=== PATIENT | female | born 1970 | race Caucasian/White ===

== ENCOUNTER 2017-07-02 09:31 | Emergency (ER) | payer SELFPAY ==
[2017-07-02] MEDS ORDERED: IPRATROPIUM/ALBUTEROL 3 ML NEB INH STA (09:56)
--- NOTE | 2017-07-02 09:59 | ED Physician Documentation ---
PD HPI URI - Stated complaint Stated Complaint: CHEST CONGESTION,COUGH - Chief complaint Chief Complaint: Fever - History obtained from History obtained from: Patient - History of Present Illness Timing - onset: How many days ago (5) Timing duration: Days (5) Timing details: Still present Associated symptoms: Fever, Dry cough, Dyspnea Contributing factors: COPD / asthma - Additional information Additional information: The patient is a 47-year-old female with history of asthma, who presents with cough and congestion for the past 5 days. She is concerned about "the flu," or possible pneumonia. She has had fevers, myalgias, sore throat, and nausea, without vomiting or abdominal pain. Her cough is minimally productive of sputum. She reports associated dyspnea. She has no history of cigarette smoking. Review of Systems Constitutional: reports: Fever, Myalgias, Fatigue Eyes: denies: Irritation Ears: denies: Ear pain Nose: reports: Congestion Throat: reports: Sore throat (mild) Cardiac: denies: Chest pain / pressure Respiratory: reports: Dyspnea, Cough, Wheezing GI: reports: Nausea. denies: Abdominal Pain, Vomiting, Diarrhea : denies: Dysuria Skin: denies: Rash Musculoskeletal: denies: Extremity swelling Neurologic: reports: Headache (Previously, but not currently.) PD PAST MEDICAL HISTORY - Past Medical History Cardiovascular: None Respiratory: Asthma Endocrine/Autoimmune: None - Present Medications Home Medications: Ambulatory Orders Medication Instructions Recorded Confirmed Acyclovir 07/02/17 Gabapentin 07/02/17 Loratadine [Claritin] 07/02/17 Omeprazole [PriLOSEC] 07/02/17 - Allergies Allergies/Adverse Reactions: Allergies Allergy/AdvReac Type Severity Reaction Status Date / Time cefdinir [From Omnicef] Allergy Rash Verified 07/02/17 10:08 latex Allergy Unknown Verified 07/02/17 10:08 Penicillins Allergy Unknown Verified 07/02/17 10:08 prednisone Allergy Anaphylaxis Verified 07/02/17 10:08 - Social History Does the pt smoke?: No PD ED PE NORMAL - Vitals Vital signs reviewed: Yes (normal) - General General: Alert and oriented X 3, Well developed/nourished - HEENT HEENT: Atraumatic, Ears normal, Moist mucous membranes, Pharynx benign - Neck Neck: Supple, no meningeal sign, No adenopathy, No JVD - Cardiac Cardiac: RRR, No murmur - Respiratory Respiratory: Other (Diffuse expiratory wheezing, without rales or rhonchi.) - Abdomen Abdomen: Soft, Non tender, Other (Rotund abdomen.) - Derm Derm: No rash - Extremities Extremities: No edema, No calf tenderness / cord - Neuro Neuro: Alert and oriented X 3, No motor deficit, Normal speech Results - Vitals Vitals: Oxygen O2 Source Room air - Labs Labs: Laboratory Tests 07/02/17 10:00 Influenza A (Rapid) Negative Influenza B (Rapid) Negative Influenza Types A,B Ag - - Rads (name of study) 2-view CXR Radiology: Prelim report reviewed, EMP read contemporaneously, See rad report ( Negative for pneumonia or acute cardiopulmonary process. Mild anterior compression fracture in the T8 and T9 vertebral bodies.) PD MEDICAL DECISION MAKING - ED course Complexity details: reviewed results, re-evaluated patient, considered differential, d/w patient ED course: The patient's presentation is most consistent with acute viral bronchitis with wheezing. Her presentation does not suggest pneumonia, and her chest x-ray reveals no acute infiltrate or effusion. Influenza swab is negative. Treatment in the emergency department included administration of DuoNeb nebulizer which improved her air movement. She felt subjectively improved. Steroids were not administered, as the patient reports history of allergy to prednisone. I discussed with her the expected course of illness, advised that antibiotics are not clinically indicated, encouraged outpatient follow-up, as well as discussed potentially worrisome signs or symptoms that should prompt reevaluation in the emergency department. Departure - Departure Disposition: 01 Home, Self Care Clinical Impression: Acute bronchitis, viral Condition: Stable Instructions: ED Bronchitis Asthmatic Follow-Up: Crystal Forbes PA-C [Provider Admit Priv/Credential] - Comments: Continue using your inhaler as previously prescribed. You can use Tylenol or ibuprofen as needed for fever or discomfort. Follow up with your primary physician within 1-2 weeks. Call to schedule appointment. Return to the emergency department if you develop increasing difficulty breathing, or otherwise worsening symptoms. Discharge Date/Time: 07/02/17 11:08
--- NOTE | 2017-07-02 10:31 | XRAY Report ---
EXAM: CHEST RADIOGRAPHY EXAM DATE: 07/02/2017 10:07 AM. CLINICAL HISTORY: Cough and congestion, with wheezing. COMPARISON: None. TECHNIQUE: 2 views. FINDINGS: Lungs/Pleura: No focal opacities evident. No pleural effusion. No pneumothorax. Normal volumes. Mediastinum: Heart and mediastinal contours are unremarkable. Other: There is mild anterior compression fracture in the T8 and T9. IMPRESSION: 1. Negative for pneumonia or acute cardiopulmonary process. 2. Mild anterior compression fracture in the T8 and T9 [facility] Referring Provider Line: [phone] SITE ID: [id number]
--- NOTE | 2017-07-02 10:31 | XRAY Preliminary Report ---
Exam: XR CHEST 2 VIEW X-RAY IMPRESSION: 1. Negative for pneumonia or acute cardiopulmonary process. 2. Mild anterior compression fracture in the T8 and T9 [facility] SITE ID: [id number]
[2017-07-02 11:10] VITALS: BP 127/92
== END 2017-07-02 11:08 | disposition home or self-care (01) ==
LOC: ED 09:31
DX: J20.8 Acute bronchitis due to other specified organisms (principal); R06.2 Wheezing
CPT/HCPCS: 71046; 87275; 87276; 94640; 94664; 99283; 99284; J7620

== ENCOUNTER 2017-11-25 07:53 | Emergency (ER) | payer SELFPAY ==
--- NOTE | 2017-11-25 08:49 | ED Physician Documentation ---
PD HPI CHEST PAIN - Stated complaint Stated Complaint: CHEST PX - Chief complaint Chief Complaint: Cardiac - History obtained from History obtained from: Patient - History of Present Illness Timing - onset: Today Timing - onset during: Rest Timing - duration: Minutes Timing - details: Abrupt onset, Still present Quality: Pressure Location: Substernal, Left chest Radiation: Left upper extremity. No: Jaw, Neck, Back, Abdominal, Right upper extremity Improved by: Rest Worsened by: Palpation Associated symptoms: No: Shortness of air, Diaphoresis, Nausea, Vomiting, Feeling faint / dizzy, General Weakness, Palpitations, Cough Similar symptoms before: Has not had sx before Recently seen: Clinic - Additional information Additional information: 47-year-old female who is been having some issues with nasal congestion and burning in her nose and pain in her left ear has developed some pain in her chest today. She states that she developed a cramp in her left calf and when this happened her rubbed her legs and when he was rubbing her left leg she had sudden onset of this pain in her left chest. She describes it as a squeezing-like sensation and she does have some tenderness to the chest wall. She has not had this specific pain previously she did have the pain creep up her into her arm that is now resolved she has a persistent pinch in her chest wall. Review of Systems Constitutional: denies: Fever, Chills, Myalgias Eyes: denies: Decreased vision Ears: reports: Ear pain Nose: reports: Rhinorrhea / runny nose, Congestion Throat: denies: Sore throat Cardiac: reports: Chest pain / pressure. 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 - Present Medications Home Medications: Ambulatory Orders Medication Instructions Recorded Confirmed Acyclovir 07/02/17 Gabapentin 07/02/17 Loratadine [Claritin] 07/02/17 Omeprazole [PriLOSEC] 07/02/17 Albuterol Sulf [Ventolin Hfa 1 - 2 puffs INH Q4HR PRN #1 inhaler 11/25/17 Inhaler] Sulfamethoxazole/Trimethoprim 1 each PO BID #14 tablet 11/25/17 [Sulfamethoxazole-Tmp Ds Tablet] - Allergies Allergies/Adverse Reactions: Allergies Allergy/AdvReac Type Severity Reaction Status Date / Time cefdinir [From Omnicef] Allergy Rash Verified 07/02/17 10:08 latex Allergy Unknown Verified 07/02/17 10:08 Penicillins Allergy Unknown Verified 07/02/17 10:08 prednisone Allergy Anaphylaxis Verified 07/02/17 10:08 - Social History Does the pt smoke?: No Smoking Status: Never smoker Does the pt drink ETOH?: No Does the pt have substance abuse?: No - Immunizations Immunizations are current?: Yes PD ED PE NORMAL - Vitals Vital signs reviewed: Yes (hypertensive ) - General General: Alert and oriented X 3, No acute distress, Well developed/nourished - HEENT HEENT: Atraumatic, PERRL, EOMI, Moist mucous membranes, Pharynx benign, Other ( There is minimal inflamation in the left ear. ) - Neck Neck: Supple, no meningeal sign, No bony TTP - Cardiac Cardiac: RRR, No murmur - Respiratory Respiratory: No respiratory distress, Clear bilaterally - Abdomen Abdomen: Soft, Non tender - Back Back: No CVA TTP, No spinal TTP - Derm Derm: Normal color, Warm and dry, No rash - Extremities Extremities: No deformity, No edema - Neuro Neuro: Alert and oriented X 3, cigar head stringer 2-12 intact, No motor deficit, No sensory deficit, Normal speech Eye Opening: Spontaneous Motor: Obeys Commands Verbal: Oriented GCS Score: 15 - Psych Psych: Normal mood, Normal affect Results - Vitals Vitals: Vital Signs - 24 hr 11/25/17 11/25/17 11/25/17 08:00 08:59 12:13 Temperature 36.1 C L Heart Rate 85 84 77 Respiratory 18 17 10 L Rate Blood Pressure 126/93 H 129/107 H 134/89 H O2 Saturation 96 97 98 11/25/17 13:25 Temperature Heart Rate 86 Respiratory 12 Rate Blood Pressure O2 Saturation Oxygen O2 Source Room air - EKG (time done) 0806 Rate: Rate (enter#) (84) Rhythm: NSR Compare to prior EKG: Old EKG unavailable Computer interpretation: Agree with computer - Labs Labs: Laboratory Tests 11/25/17 11/25/17 11/25/17 09:56 09:56 10:00 WBC 6.2 RBC 4.96 Hgb 14.1 Hct 41.7 MCV 84.1 MCH 28.5 MCHC 33.9 RDW 13.3 Plt Count 257 MPV 8.3 Neut # (Auto) 3.4 Lymph # (Auto) 1.9 [place] # (Auto) 0.5 Eos # (Auto) 0.3 Baso # (Auto) 0.0 Absolute Nucleated RBC 0.01 Nucleated RBC % 0.1 Sodium Potassium Chloride Carbon Dioxide Anion Gap BUN Creatinine Estimated GFR (MDRD) Glucose Calcium Total Bilirubin AST ALT Alkaline Phosphatase Troponin I Total Protein Albumin Globulin Albumin/Globulin Ratio Lipase Urine Color YELLOW Urine Clarity CLEAR Urine pH 6.0 Ur Specific [place] <=1.005 <=1.005 Urine Protein NEGATIVE Urine Glucose (UA) NEGATIVE Urine Ketones NEGATIVE Urine Occult Blood NEGATIVE Urine Nitrite NEGATIVE Urine Bilirubin NEGATIVE Urine Urobilinogen 0.2 (NORMAL) Ur Leukocyte Esterase NEGATIVE Ur Microscopic Review NOT INDICATED Urine Culture Comments NOT INDICATED Urine HCG, Qual NEGATIVE 11/25/17 11/25/17 10:00 10:00 WBC RBC Hgb Hct MCV MCH MCHC RDW Plt Count MPV Neut # (Auto) Lymph # (Auto) [place] # (Auto) Eos # (Auto) Baso # (Auto) Absolute Nucleated RBC Nucleated RBC % Sodium 139 Potassium 4.0 Chloride 102 Carbon Dioxide 28 Anion Gap 9.0 BUN 12 Creatinine 0.7 Estimated GFR (MDRD) 90 Glucose 110 H Calcium 9.0 Total Bilirubin 0.7 AST 32 ALT 57 Alkaline Phosphatase 85 Troponin I < 0.04 Total Protein 7.6 Albumin 3.8 Globulin 3.8 Albumin/Globulin Ratio 1.0 Lipase 26 Urine Color Urine Clarity Urine pH Ur Specific [place] Urine Protein Urine Glucose (UA) Urine Ketones Urine Occult Blood Urine Nitrite Urine Bilirubin Urine Urobilinogen Ur Leukocyte Esterase Ur Microscopic Review Urine Culture Comments Urine HCG, Qual - Rads (name of study) CTA chest Radiology: Prelim report reviewed (Impression:. No pulmonary emboli. 2 no focal consolidation, pleural effusion or lymphadenopathy. 3 hepatic steatosis. 4 small hiatal hernia.), EMP read indepedently, See rad report PD MEDICAL DECISION MAKING - ED course Complexity details: reviewed old records, reviewed results, re-evaluated patient , considered differential, d/w patient ED course: 47-year-old female with allergic sinus symptoms and chest wall pain I suspect has subclinical asthma and chest wall strain.She is administered Toradol with some improvement in the pain. I did offer the patient dexamethasone and she refused stating that she has had some reaction to prednisone that was unpleasant. She states that this usually had caused her to have an increase in her respiratory difficulty. She does have some inflammation in the nares and some inflammation in the left ear as well. She states that she is able to take Septra and this is the antibiotic that has worked best for her with sinus issues. She uses a Qvar inhaler and does not use albuterol on any regular basis. She has not been using albuterol recently. Here in the emergency department she is given a DuoNeb treatment. She does not have much immediate improvement with the exception of ease of breathing. After discussing the situation with the patient further does appear that she had significant nasal congestion and obstruction to breathing through her nasal passages for several days. This is somewhat better today. When I had her plug her nose and try to breathe through the nose she had the pain in her chest. I suspect this confirms the chest wall strain. We will provide her with a prescription for a new albuterol inhaler and she prefers to use Bactrim for sinus infection and I suspect she has some mild infection as well as the inflammatory irritation. I am reluctant to use a steroid with this patient because she has had prior worsening with prednisone requiring repeat visits to the emergency department. - Sepsis Event Vital Signs: Vital Signs - 24 hr 11/25/17 11/25/17 11/25/17 08:00 08:59 12:13 Temperature 36.1 C L Heart Rate 85 84 77 Respiratory 18 17 10 L Rate Blood Pressure 126/93 H 129/107 H 134/89 H O2 Saturation 96 97 98 11/25/17 13:25 Temperature Heart Rate 86 Respiratory 12 Rate Blood Pressure O2 Saturation Oxygen O2 Source Room air Departure - Departure Disposition: 01 Home, Self Care Clinical Impression: Strain of chest wall Qualifiers: Encounter type: initial encounter Qualified Code(s): S29.011A - Strain of muscle and tendon of front wall of thorax, initial encounter Sinusitis Qualifiers: Sinusitis location: unspecified location Chronicity: acute Recurrence: not specified as recurrent Qualified Code(s): J01.90 - Acute sinusitis, unspecified Condition: Stable Instructions: ED Sinusitis Abx Tx, ED Chest Pain Costochondritis Follow-Up: Your, doctor [Other] Prescriptions: Albuterol Sulf [Ventolin Hfa Inhaler] 1 - 2 puffs INH Q4HR PRN #1 inhaler PRN Reason: Shortness Of Air/Wheezing Sulfamethoxazole/Trimethoprim [Sulfamethoxazole-Tmp Ds Tablet] 1 each PO BID # 14 tablet
[2017-11-25] MEDS ORDERED: IOPAMIDOL-300 100 ML VIAL ONE (09:34)
[2017-11-25 10:11] LABS: BASOPHILS % (AUTO) 0.8 %; EOSINOPHILS # (AUTO) 0.3 10^3/uL (0.0-0.7); EOSINOPHILS % (AUTO) 5.4 %; HGB - HEMOGLOBIN 14.1 g/dL (12.0-16.0); LYMPHOCYTES # (AUTO) 1.9 10^3/uL (1.5-3.5); MEAN CORPUSCULAR HEMOGLOBIN 28.5 pg (27.0-31.0); MEAN CORPUSCULAR HGB CONC 33.9 g/dL (32.0-36.0); MEAN CORPUSCULAR VOLUME 84.1 fL (81.0-99.0); MEAN PLATELET VOLUME 8.3 fL (7.9-10.8); MONOCYTES # (AUTO) 0.5 10^3/uL (0.0-1.0); MONOCYTES % (AUTO) 8.6 %; NEUTROPHILS # (AUTO) 3.4 10^3/uL (1.5-6.6); NEUTROPHILS % (AUTO) 54.2 %; PLT - PLATELET COUNT 257 10^3/uL (130-450); RED BLOOD COUNT 4.96 10^6/uL (4.20-5.40); RED CELL DISTRIBUTION WIDTH 13.3 % (12.0-15.0); WHITE BLOOD COUNT 6.2 x10^3/uL (4.8-10.8)
[2017-11-25 10:14] LABS: BILIRUBIN,URINE NEGATIVE (NEGATIVE); CLARITY,URINE CLEAR (CLEAR); GLUCOSE, URINE (UA) NEGATIVE (NEGATIVE); KETONES,URINE (UA) NEGATIVE (NEGATIVE); LEUKOCYTE ESTERASE, URINE NEGATIVE (NEGATIVE); NITRITE,URINE NEGATIVE (NEGATIVE); OCCULT BLOOD,URINE NEGATIVE (NEGATIVE); PROTEIN,URINE NEGATIVE (NEGATIVE); UROBILINOGEN,URINE 0.2 (NORMAL) E.U./dL (NORMAL)
[2017-11-25 10:15] LABS: HCG UR QUAL NEGATIVE
[2017-11-25 10:28] LABS: ALBUMIN 3.8 g/dL (3.2-5.5); BILIRUBIN,TOTAL 0.7 mg/dL (0.2-1.0); CREATININE 0.7 mg/dL (0.4-1.0); TOTAL PROTEIN 7.6 g/dL (6.7-8.2)
--- NOTE | 2017-11-25 11:36 | CT Report ---
Procedure Date: 11/25/2017 Accession Number: [id number] / [id number] Procedure: CT - Chest Angio (PE) CPT Code: FULL RESULT: EXAM: CT ANGIOGRAM CHEST EXAM DATE: 11/25/2017 11:09 AM. CLINICAL HISTORY: Chest pain dyspnea. COMPARISON: None. TECHNIQUE: Routine helical imaging was performed through the chest in the pulmonary arterial phase. IV Contrast: ISOVUE 300 80mL. Reconstructions: Coronal 3-D MIP reconstructions.Sagittal and coronal. In accordance with CT protocol optimization, one or more of the following dose reduction techniques were utilized for this exam: automated exposure control, adjustment of mA and/or KV based on patient size, or use of iterative reconstructive technique. FINDINGS: Pulmonary Arteries: Diagnostic quality: Adequate through the segmental arteries. No evidence for acute or chronic pulmonary emboli. RV/LV is within normal limits. There is no interventricular septal bowing. There is no reflux of contrast material in the IVC. Lungs/Pleura: No consolidation, nodules, or edema. No effusions or pneumothorax. Mediastinum: Normal. No cardiac enlargement or adenopathy. Thoracic Aorta: Unremarkable. Upper Abdomen: The liver is low in attenuation consistent with hepatic steatosis. Other: Small hiatal hernia. IMPRESSION: 1. No pulmonary emboli. 2. No focal consolidation, pleural effusion or lymphadenopathy. 3. Hepatic steatosis. 4. Small hiatal hernia. [facility]
[2017-11-25] MEDS ORDERED: KETOROLAC 60 MG/2 ML VIAL IVP STA (11:53)
[2017-11-25] MEDS ORDERED: IOPAMIDOL-300 100 ML VIAL IVP ONE (12:14)
[2017-11-25] MEDS ORDERED: IPRATROPIUM/ALBUTEROL 3 ML NEB INH STA (13:07)
[2017-11-25 14:25] VITALS: BP 128/74
== END 2017-11-25 14:22 | disposition home or self-care (01) ==
LOC: ED 07:53
DX: S29.011A Strain of muscle and tendon of front wall of thorax, initial encounter (principal); J01.90 Acute sinusitis, unspecified; K44.9 Diaphragmatic hernia without obstruction or gangrene
CPT/HCPCS: 36415; 71275; 80053; 81003; 81025; 83690; 84484; 85025; 93005; 94640; 96374; 96375; 99284; Q9967; 81001; 87086

== ENCOUNTER 2020-06-24 17:43 | Emergency (ER) | payer OTHER ==
[2020-06-24 17:53] VITALS: BP 146/105
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
== END 2020-06-24 18:39 | disposition home or self-care (01) ==
LOC: ED 17:43
DX: T60.91XA Toxic effect of unspecified pesticide, accidental (unintentional), initial encounter (principal); R07.0 Pain in throat; R07.9 Chest pain, unspecified; R51.9 Headache, unspecified; Y92.009 Unspecified place in unspecified non-institutional (private) residence as the place of occurrence of the external cause
CPT/HCPCS: 99281

== ENCOUNTER 2021-05-27 09:16 | Emergency (ER) | payer MEDICAID, OTHER ==
[2021-05-27 09:57] LABS: BASOPHILS % (AUTO) 0.8 %; EOSINOPHILS # (AUTO) 0.6 10^3/uL (0.0-0.7); EOSINOPHILS % (AUTO) 11.9 %; HCT - HEMATOCRIT 40.2 % (37.0-47.0); HGB - HEMOGLOBIN 13.3 g/dL (12.0-16.0); LYMPHOCYTES # (AUTO) 1.9 10^3/uL (1.5-3.5); LYMPHOCYTES % (AUTO) 37.3 %; MEAN CORPUSCULAR HEMOGLOBIN 27.7 pg (27.0-31.0); MEAN CORPUSCULAR HGB CONC 33.1 g/dL (32.0-36.0); MEAN CORPUSCULAR VOLUME 83.8 fL (81.0-99.0); MEAN PLATELET VOLUME 10.5 fL (7.9-10.8); MONOCYTES # (AUTO) 0.4 10^3/uL (0.0-1.0); MONOCYTES % (AUTO) 8.7 %; NEUTROPHILS # (AUTO) 2.1 10^3/uL (1.5-6.6); NEUTROPHILS % (AUTO) 41.1 %; PLT - PLATELET COUNT 247 10^3/uL (130-450); RED CELL DISTRIBUTION WIDTH 13.7 % (12.0-15.0)
--- NOTE | 2021-05-27 10:02 | XRAY Report ---
PROCEDURE: Chest 1 View X-Ray INDICATIONS: Chest pain TECHNIQUE: One view of the chest was acquired. COMPARISON: Chest radiographs 07/02/2017. CTA chest 11/25/2017. FINDINGS: Surgical changes and devices: None. Lungs and pleura: No pleural effusions or pneumothorax. Lungs are clear. Mediastinum: Mediastinal contours appear normal. Heart size is normal. Bones and chest wall: No suspicious bony lesions. Overlying soft tissues appear unremarkable. IMPRESSION: No acute cardiopulmonary abnormality. Reviewed by: Matt Robb MD on 05/27/2021 10:01 AM [facility] Approved by: Matt Robb MD on 05/27/2021 10:01 AM [facility] Station ID: [id number]
[2021-05-27 10:12] LABS: ALBUMIN 3.9 g/dL (3.2-5.5); ALBUMIN/GLOBULIN RATIO 1.3 (1.0-2.2); BILIRUBIN,TOTAL 0.6 mg/dL (0.2-1.0); CALCIUM 8.9 mg/dL (8.5-10.3); CREATININE 0.7 mg/dL (0.4-1.0); POTASSIUM 3.8 mmol/L (3.5-5.0)
--- NOTE | 2021-05-27 11:00 | ED Physician Documentation ---
History of Present Illness - Stated complaint Stated Complaint: LT ARM NUMB/SOA - Chief complaint Chief Complaint: Cardiac - History obtained from History obtained from: Patient - History of Present Illness Timing: Last night - Additonal information Additional information: 50-year-old female reports some numbness to her left hand that is periodic in nature and seems to be related to positioning. She feels that if she lays down she has more of the symptoms and if she is sitting up they do not seem to be bothering her at all. She does not have any exertional component to the numbness she is not having shortness of breath and she has not been otherwise ill. Review of Systems Constitutional: denies: Fever Eyes: denies: Decreased vision Ears: denies: Ear pain Nose: denies: Congestion Throat: denies: Sore throat Cardiac: denies: Chest pain / pressure, Palpitations Respiratory: denies: Dyspnea, Cough GI: denies: Abdominal Pain, Nausea, Vomiting : denies: Dysuria, Frequency Skin: denies: Rash Musculoskeletal: reports: Extremity pain. denies: Neck pain, Back pain Neurologic: reports: Numbness. 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 - Present Medications Home Medications: Ambulatory Orders Medication Instructions Recorded Confirmed Acyclovir 07/02/17 Gabapentin PRN 07/02/17 Albuterol Sulf [Ventolin Hfa 1 - 2 puffs INH Q4HR PRN #1 inhaler 11/25/17 Inhaler] Beclomethasone 40 Mcg [Qvar 40] 1 puffs INH BID 06/24/20 06/24/20 - Allergies Allergies/Adverse Reactions: Allergies Allergy/AdvReac Type Severity Reaction Status Date / Time cefdinir [From Omnicef] Allergy Rash Verified 05/27/21 09:27 latex Allergy Unknown Verified 05/27/21 09:27 Penicillins Allergy Unknown Verified 05/27/21 09:27 prednisone Allergy Anaphylaxis Verified 05/27/21 09:27 - Social History Does the pt smoke?: No Smoking Status: Never smoker Does the pt drink ETOH?: No Does the pt have substance abuse?: No - Immunizations Immunizations are current?: Yes - POLST Patient has POLST: No PD ED PE NORMAL - Vitals Vital signs reviewed: Yes (hypertensive ) - General General: Alert and oriented X 3, No acute distress, Well developed/nourished - HEENT HEENT: Atraumatic, PERRL, EOMI - Neck Neck: Supple, no meningeal sign, No bony TTP - Cardiac Cardiac: RRR, No murmur - Respiratory Respiratory: No respiratory distress, Clear bilaterally - Abdomen Abdomen: Normal bowel sounds, Soft, Non tender, Non distended, No organomegaly - Back Back: No CVA TTP, No spinal TTP - Derm Derm: Normal color, Warm and dry, No rash - Extremities Extremities: No deformity, No edema - Neuro Neuro: Alert and oriented X 3, weight reduction specialist 2-12 intact, No motor deficit, No sensory deficit, Normal speech Eye Opening: Spontaneous Motor: Obeys Commands Verbal: Oriented GCS Score: 15 - Psych Psych: Normal mood, Normal affect Results - Vitals Vitals: Vital Signs - 24 hr 05/27/21 05/27/21 05/27/21 09:24 09:59 11:15 Temperature 36.0 C L 36.5 C Heart Rate 85 77 76 Respiratory 16 16 16 Rate Blood Pressure 148/95 H 141/91 H 138/88 H O2 Saturation 98 96 96 Oxygen O2 Source Room air - EKG (time done) 0936 Rate: Rate (enter#) (81) Rhythm: NSR Ischemia: Normal ST segments Computer interpretation: Agree with computer - Labs Labs: Laboratory Tests 05/27/21 05/27/21 05/27/21 09:44 09:44 09:45 WBC 5.0 RBC 4.80 Hgb 13.3 Hct 40.2 MCV 83.8 MCH 27.7 MCHC 33.1 RDW 13.7 Plt Count 247 MPV 10.5 Neut # (Auto) 2.1 Lymph # (Auto) 1.9 [place] # (Auto) 0.4 Eos # (Auto) 0.6 Baso # (Auto) 0.0 Absolute Nucleated RBC 0.00 Nucleated RBC % 0.0 Sodium 135 Potassium 3.8 Chloride 101 Carbon Dioxide 25 Anion Gap 9.0 BUN 17 Creatinine 0.7 Estimated GFR (MDRD) 89 Glucose 122 H Calcium 8.9 Total Bilirubin 0.6 AST 20 ALT 28 Alkaline Phosphatase 79 Troponin I High Sens < 2.3 L Total Protein 7.0 Albumin 3.9 Globulin 3.1 Albumin/Globulin Ratio 1.3 Lipase 70 H - Rads (name of study) chest Radiology: Prelim report reviewed (Impression: No acute cardiopulmonary abnormality.), EMP read indepedently, See rad report PD MEDICAL DECISION MAKING - ED course Complexity details: reviewed old records, reviewed results, re-evaluated patient, considered differential, d/w patient ED course: 50-year-old female with intermittent numbness to the left hand that appears to be related to positioning likely has a cervical radiculopathy. I explained this to the patient the nature of the cervical radiculopathy and treatments available. I did discuss with her dose of dexamethasone and she declined as she has had prior poor reaction to prednisone. I did discuss with the patient that if she continues to have these symptoms and follows up with her primary, it would be a reasonable thing to take a dose of the dexamethasone as a benefit shown from this would likely indicate further benefit from addressing the cervic al spine. Departure - Departure Disposition: 01 Home, Self Care Clinical Impression: Cervical radiculopathy Condition: Stable Instructions: ED Cervical Radiculopathy Follow-Up: Koko Munguia MD [Primary Care Provider] - Comments: Yanni Jacinto, today it looks like the numbness you are having in your left hand is likely due to cervical radiculopathy or a pinched nerve in your neck. If you continue to have some difficulty with pain in your neck and shoulder or down your arm when you are laying flat follow-up with Dr. Munguia to consider a dose of dexamethasone. Forms: Activity restrictions Discharge Date/Time: 05/27/21 11:15
[2021-05-27 11:16] VITALS: BP 138/88
== END 2021-05-27 11:15 | disposition home or self-care (01) ==
LOC: ED 09:16
DX: M54.12 Radiculopathy, cervical region (principal)
CPT/HCPCS: 36415; 80053; 83690; 84484; 85025; 93005; 99283; 99284

== ENCOUNTER 2021-08-22 10:54 | Outpatient (CLI) | payer MEDICAID | END 2021-08-22 10:55 | disposition home or self-care (01) | LOC: NS 10:54 | PROVIDERS: ATTEND Nurse Practitioner Family | DX: Z71.3 Dietary counseling and surveillance (principal); E11.9 Type 2 diabetes mellitus without complications; E78.2 Mixed hyperlipidemia; E66.01 Morbid (severe) obesity due to excess calories; Z68.42 Body mass index [BMI] 45.0-49.9, adult | CPT/HCPCS: 97802 ==

== ENCOUNTER 2022-02-13 08:00 | Outpatient (CLI) | payer MEDICAID ==
[2022-02-13 18:24] LABS: BASOPHILS % (AUTO) 0.9 %; EOSINOPHILS # (AUTO) 0.2 10^3/uL (0.0-0.7); EOSINOPHILS % (AUTO) 4.1 %; HCT - HEMATOCRIT 43.2 % (37.0-47.0); HGB - HEMOGLOBIN 14.4 g/dL (12.0-16.0); LYMPHOCYTES # (AUTO) 1.9 10^3/uL (1.5-3.5); LYMPHOCYTES % (AUTO) 40.3 %; MEAN CORPUSCULAR HEMOGLOBIN 27.7 pg (27.0-31.0); MEAN CORPUSCULAR HGB CONC 33.3 g/dL (32.0-36.0); MEAN CORPUSCULAR VOLUME 83.1 fL (81.0-99.0); MEAN PLATELET VOLUME 11.1 fL (7.9-10.8); MONOCYTES # (AUTO) 0.3 10^3/uL (0.0-1.0); MONOCYTES % (AUTO) 6.9 %; NEUTROPHILS # (AUTO) 2.2 10^3/uL (1.5-6.6); NEUTROPHILS % (AUTO) 47.6 %; PLT - PLATELET COUNT 251 10^3/uL (130-450); RED CELL DISTRIBUTION WIDTH 14.1 % (12.0-15.0); WHITE BLOOD COUNT 4.6 x10^3/uL (4.8-10.8)
[2022-02-13 18:43] LABS: ALBUMIN 4.1 g/dL (3.2-5.5); ALBUMIN/GLOBULIN RATIO 1.2 (1.0-2.2); BILIRUBIN,TOTAL 0.7 mg/dL (0.2-1.0); CALCIUM 9.1 mg/dL (8.5-10.3); CREATININE 0.7 mg/dL (0.4-1.0); TOTAL PROTEIN 7.6 g/dL (6.7-8.2)
[2022-02-13 18:46] LABS: THYROID STIMULATING HORMONE 3.51 uIU/mL (0.34-5.60)
[2022-02-15 07:07] LABS: HIV SCREEN 4TH GENERATION Non Reactive (Non Reactive)
[2022-02-15 11:08] LABS: HCV AB <0.1 s/co ratio (0.0-0.9)
== END 2022-02-13 23:59 | disposition home or self-care (01) ==
LOC: LAB.N 08:00
PROVIDERS: ATTEND Family Medicine
DX: K59.00 Constipation, unspecified (principal); E03.9 Hypothyroidism, unspecified; L65.9 Nonscarring hair loss, unspecified; Z11.3 Encounter for screening for infections with a predominantly sexual mode of transmission
CPT/HCPCS: 36415; 80053; 83540; 84443; 84466; 85025; 86803; 87389

== ENCOUNTER 2023-09-13 10:20 | Emergency (ER) | payer MEDICAID ==
--- NOTE | 2023-09-13 11:25 | ED Physician Documentation ---
PD HPI LOWER EXT INJURY - Stated complaint Stated Complaint: RT LEG SWELLING/PX - Chief complaint Chief Complaint: Ext Problem - Additional information Additional information: Generally healthy 53-year-old lady has had some problems with her right knee over the past couple of weeks she seen a chiropractor who has been manipulating it. She has waxing and waning swelling of the knee joint. She has been ambulatory walking on a treadmill occasionally gets worse occasionally gets better occasionally she has some clicking and popping. She is not had any trauma. Acute problem today is that her right lower leg is now swollen. This is new problem for her. She is not on control not smoker does not have any other DVT risk factors. No prior DVT. 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: Tubal ligation, Hysterectomy, Other - Present Medications Home Medications: Ambulatory Orders Medication Instructions Recorded Confirmed Albuterol Sulf [Ventolin Hfa 1 - 2 puffs INH Q4HR PRN #1 inhaler 11/25/17 09/13/23 Inhaler] Beclomethasone 40 Mcg [Qvar 40] 1 puffs INH BID 06/24/20 09/13/23 Cetirizine [ZyrTEC] 10 mg PO DAILY 09/13/23 09/13/23 Esomeprazole Magnesium [Nexium] 40 mg ORAL DAILY 09/13/23 09/13/23 Loratadine [Claritin] 10 mg PO DAILY 09/13/23 09/13/23 - Allergies Allergies/Adverse Reactions: Allergies Allergy/AdvReac Type Severity Reaction Status Date / Time cefdinir [From Omnicef] Allergy Rash Verified 09/13/23 10:35 latex Allergy Unknown Verified 09/13/23 10:35 Penicillins Allergy Unknown Verified 09/13/23 10:35 prednisone Allergy Anaphylaxis Verified 09/13/23 10:35 - Social History Does the pt smoke?: No Smoking Status: Never smoker Does the pt drink ETOH?: Yes Does the pt have substance abuse?: Yes Substance Use and Type: CBD oil / Products - Immunizations Immunizations are current?: Yes - POLST Patient has POLST: No PD ED PE NORMAL - Vitals Vital signs reviewed: Yes - General General: Alert and oriented X 3 - HEENT HEENT: Atraumatic - Cardiac Cardiac: Strong equal pulses - Respiratory Respiratory: No respiratory distress - Extremities Extremities: Other (She has swelling of her right calf relative to the left. Full range of motion of the right knee without any obvious effusion though her body habitus limits the exam. No bony tenderness of the right knee) - Neuro Neuro: No motor deficit, No sensory deficit Results - Vitals Vitals: Vital Signs - 24 hr 09/13/23 10:35 Temperature 36.3 C L Heart Rate 108 H Respiratory 18 Rate Blood Pressure 150/109 H O2 Saturation 96 Oxygen O2 Source Room air - Rads (name of study) r knee Relevant Findings:: Final report received (Moderate degenerative changes particularly affecting the medial and patellofemoral compartments, ) duplex R leg Relevant Findings:: Final report received (neg for DVT) PD Medical Decision Making - ED course Complexity details: considered differential (DVT versus dependent edema from knee injury, knee sprain) ED course: 53-year-old female with right knee and calf swelling. She initially thought that the swelling was in the knee and then drain inferiorly towards her calf. To evaluate her we did a Doppler of her right leg which is negative for DVT. The right knee x-ray shows possible small joint effusion and DJD but no acute fracture. Plan to treat the knee conservatively with rest ice compress elevate. She is quite greatly relieved that she does not have a DVT. Departure - Departure Disposition: 01 Home, Self Care Clinical Impression: Right knee pain Condition: Good Instructions: ED RIMA Comments: Your x-ray of your right knee shows degenerative changes but no fracture. The Doppler ultrasound of the right leg excludes blood clot as a cause of your swelling. Would have you rest ice compress and elevate that right leg. This should help with the swelling. Try Motrin. Follow-up with primary care if symptoms persist. Forms: PCP List
--- NOTE | 2023-09-13 12:19 | Ultrasound Report ---
PROCEDURE: Duplex Ext Veins Right INDICATIONS: R leg swelling r/o DVT TECHNIQUE: Real-time imaging, as well as color and pulse Doppler interrogation, were performed of the lower extr emity deep veins from the inguinal ligament to the popliteal fossa. Attempted visualization of the ca lf veins was performed. COMPARISON: None. FINDINGS: The deep veins are normally compressible, and free of intraluminal thrombus. Color and pu lse Doppler demonstrate normal phasic intraluminal flow. There is normal augmentation response to di stal compression maneuver. IMPRESSION: No deep venous thrombosis of the visualized lower extremity. Reviewed by: Isidoro Leavitt MD on 09/13/2023 12:18 PM PDT Approved by: Isidoro Leavitt MD on 09/13/2023 12:18 PM PDT Station ID: [id number]
--- NOTE | 2023-09-13 12:54 | XRAY Report ---
PROCEDURE: Knee 3V LT INDICATIONS: R knee swelling, no trauma TECHNIQUE: 3 views of the knee(s) were acquired. COMPARISON: None. FINDINGS: Bones: Moderate degenerative changes particularly at the medial and patellofemoral compartments. Ther e is slight lateral patellar tilt. No acute displaced fracture or dislocation. Soft tissues: Possible small knee joint effusion. IMPRESSION: Moderate degenerative changes particularly affecting the medial and patellofemoral compartments, with slight lateral patellar tilt. No acute displaced fracture. Possible small knee joint effusion. If there is high concern for further derangement, consider MRI evaluation. Reviewed by: Isidoro Leavitt MD on 09/13/2023 12:53 PM PDT Approved by: Isidoro Leavitt MD on 09/13/2023 12:53 PM PDT Station ID: [id number]
[2023-09-13 13:15] VITALS: BP 153/106; O2SAT 97
== END 2023-09-13 13:13 | disposition home or self-care (01) ==
LOC: ED 10:20
DX: M25.561 Pain in right knee (principal); J45.909 Unspecified asthma, uncomplicated
CPT/HCPCS: 99283; 99284

== ENCOUNTER 2023-10-22 20:56 | Emergency (ER) | payer MEDICAID ==
[2023-10-22 21:15] VITALS: BP 144/93; O2SAT 96
--- NOTE | 2023-10-22 23:05 | ED Physician Documentation ---
PD HPI UPPER EXT INJURY - Stated complaint Stated Complaint: RT LEG SWELLING/PX - Chief complaint Chief Complaint: Trauma Ext - History obtained from History obtained from: Patient (She developed some pain and swelling of the area above the right medial ankle tonight and was worried about a DVT. 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, Hysterectomy, Other - Present Medications Home Medications: Ambulatory Orders Medication Instructions Recorded Confirmed Albuterol Sulf [Ventolin Hfa 1 - 2 puffs INH Q4HR PRN #1 inhaler 11/25/17 09/13/23 Inhaler] Beclomethasone 40 Mcg [Qvar 40] 1 puffs INH BID 06/24/20 09/13/23 Cetirizine [ZyrTEC] 10 mg PO DAILY 09/13/23 09/13/23 Esomeprazole Magnesium [Nexium] 40 mg ORAL DAILY 09/13/23 09/13/23 Loratadine [Claritin] 10 mg PO DAILY 09/13/23 09/13/23 - Allergies Allergies/Adverse Reactions: Allergies Allergy/AdvReac Type Severity Reaction Status Date / Time cefdinir [From Omnicef] Allergy Rash Verified 10/22/23 21:03 latex Allergy Unknown Verified 10/22/23 21:03 Penicillins Allergy Unknown Verified 10/22/23 21:03 prednisone Allergy Anaphylaxis Verified 10/22/23 21:03 - Social History Does the pt smoke?: No Smoking Status: Never smoker Does the pt drink ETOH?: Yes Does the pt have substance abuse?: Yes - Immunizations Immunizations are current?: Yes - POLST Patient has POLST: No PD ED PE NORMAL - Vitals Vital signs reviewed: Yes - General General: Alert and oriented X 3, No acute distress - Extremities Extremities: Other (There is area of mild swelling and tenderness above the right medial ankle. There is no warmth or redness. Full range of motion at the ankle which is painless.) - Neuro Neuro: Alert and oriented X 3 Results - Vitals Vitals: Vital Signs - 24 hr 10/22/23 21:04 Temperature 36.1 C L Heart Rate 107 H Respiratory 18 Rate Blood Pressure 144/93 H O2 Saturation 96 Oxygen O2 Source Room air - Rads (name of study) DVT ultrasound negative per RDMS Relevant Findings:: Final report received, EMP independent interpretation of test Departure - Departure Disposition: 01 Home, Self Care Clinical Impression: Leg pain Qualifiers: Laterality: right Qualified Code(s): M79.604 - Pain in right leg Condition: Good Record reviewed to determine appropriate education?: Yes Comments: You were seen tonight with some pain to the medial part of the right ankle area. There is no blood clot on ultrasound. The drilling fluids specialist did note some fluid there which is nonspecific, probably from an injury or pulled something. No specific therapy is required. You can use ibuprofen and elevate and wrap. Return for new or worsening symptoms. Follow-up with your doctor in a week if not better. Forms: PCP List Discharge Date/Time: 10/22/23 23:10
--- NOTE | 2023-10-22 23:18 | Ultrasound Report ---
PROCEDURE: Duplex Ext Veins Right INDICATIONS: RLE pain TECHNIQUE: Real-time imaging, as well as color and pulse Doppler interrogation, were performed of the lower extr emity deep veins from the inguinal ligament to the popliteal fossa. Attempted visualization of the ca lf veins was performed. COMPARISON: None. FINDINGS: The deep veins are normally compressible, and free of intraluminal thrombus. Color and pu lse Doppler demonstrate normal phasic intraluminal flow. There is normal augmentation response to di stal compression maneuver. Small nonspecific fluid collection is seen medial aspect of the ankle in the area measuring 1.7 x 0.5 x 1.2 cm. IMPRESSION: 1.No deep venous thrombosis of the visualized lower extremity. 2.Small nonspecific fluid collection is seen in the area of pain at the medial ankle. Reviewed by: Matt Robb MD on 10/22/2023 11:17 PM PDT Approved by: Matt Robb MD on 10/22/2023 11:17 PM PDT Station ID: [id number]
== END 2023-10-22 23:10 | disposition home or self-care (01) ==
LOC: ED 20:56
DX: J45.909 Unspecified asthma, uncomplicated (principal); M79.604 Pain in right leg
CPT/HCPCS: 99283; 99284